=== PATIENT | female | born 1980 | race Caucasian/White ===

== ENCOUNTER 2018-01-31 19:42 | Emergency (ER) | payer SELFPAY ==
[~2018-01-31] VITALS: Ht 154.9 cm; Wt 199.6 kg
[~2018-01-31 19:42] MED LIST: [UNRECOGNIZED DRUG - CODE] PO; [UNRECOGNIZED DRUG - CODE] PO
[2018-01-31 19:43] VITALS: BP 134/98
[2018-01-31] MEDS: ACETAMINOPHEN EXTRA STRENGTH 500 MG TAB PO ONE (20:28)
[2018-01-31] MEDS: KETOROLAC 60 MG/2 ML VIAL IM ONE (20:29)
[2018-01-31 21:18] VITALS: BP 130/88
== END 2018-01-31 21:21 | disposition home or self-care (01) ==
LOC: MED 19:42
DX: S39.012A Strain of muscle, fascia and tendon of lower back, initial encounter (principal); Z79.899 Other long term (current) drug therapy; W22.8XXA Striking against or struck by other objects, initial encounter; Y93.89 Activity, other specified; Y92.89 Other specified places as the place of occurrence of the external cause; Y99.8 Other external cause status
CPT/HCPCS: 72100; 81002; 81025; 96372; 99284; J1885

== ENCOUNTER 2021-06-30 05:59 | Emergency (ER) | payer SELFPAY ==
[~2021-06-30] VITALS: Ht 154.9 cm; Wt 217.7 kg
[~2021-06-30 05:59] MED LIST changes: +D ME PO; -[UNRECOGNIZED DRUG - CODE] PO
[2021-06-30 06:04] VITALS: BP 111/83
--- NOTE | 2021-06-30 06:16 | NUR ---
TO LOBBY FOLLOWING TRIAGE
[2021-06-30] MEDS ORDERED: TETRACAINE HCL/PF 0.5% OPTH 4 ML BTL OP ONE (07:10)
[2021-06-30] MEDS ORDERED: FLUORESCEIN OPTH STRIP 1 MG OP ONE (07:10)
[2021-06-30] MEDS ORDERED: TOMOMETER 1 DEV DEV MC ONE (07:15)
--- NOTE | 2021-06-30 07:23 | NUR ---
DR MAR EVALUATING PT IN TRIAGE
[2021-06-30] MEDS ORDERED: ERYT5OIN51 OP (07:41)
--- NOTE | 2021-06-30 07:50 | NUR ---
Patient discharged with v/s stable. Written and verbal after care instructions ABOUT BLURRED VISION AND CORNEAL ABRASION given and explained. Patient alert, oriented and verbalized understanding of instructions. Ambulatory with steady gait. All questions addressed prior to discharge. ID band removed. Patient advised to follow up with PMD. Rx of ERYTHROMYCIN given. Patient educated on indication of medication including possible reaction and side effects. Opportunity to ask questions provided and answered.
== END 2021-06-30 07:50 | disposition home or self-care (01) ==
LOC: MED 05:59
DX: S05.02XA Injury of conjunctiva and corneal abrasion without foreign body, left eye, initial encounter (principal); X58.XXXA Exposure to other specified factors, initial encounter; Y93.89 Activity, other specified; Y92.89 Other specified places as the place of occurrence of the external cause; Y99.8 Other external cause status
CPT/HCPCS: 99283

== ENCOUNTER 2021-07-05 12:21 | Emergency (ER) | payer MEDICAID ==
[~2021-07-05] VITALS: Ht 154.9 cm; Wt 217.7 kg
[~2021-07-05 12:21] MED LIST changes: +ERYT5OIN51 OP
[2021-07-05 12:40] VITALS: BP 137/73
[2021-07-05] MEDS ORDERED: CEPH-588 PO (12:49)
[2021-07-05] MEDS ORDERED: NAPR-54 PO (12:49)
[2021-07-05 13:32] VITALS: BP 137/73
--- NOTE | 2021-07-05 13:32 | NUR ---
Patient discharged with v/s stable. Written and verbal after care instructions given and explained. Patient alert, oriented and verbalized understanding of instructions. Ambulatory with steady gait. All questions addressed prior to discharge. ID band removed. Patient advised to follow up with PMD. Rx of KEFLEX AND NAPROXEN given. Patient educated on indication of medication including possible reaction and side effects. Opportunity to ask questions provided and answered.
== END 2021-07-05 13:32 | disposition home or self-care (01) ==
LOC: MED 12:21
DX: L53.9 Erythematous condition, unspecified (principal); Z79.899 Other long term (current) drug therapy
CPT/HCPCS: 99283

== ENCOUNTER 2022-05-16 18:31 | Emergency (ER) | payer SELFPAY ==
[~2022-05-16] VITALS: Ht 154.9 cm; Wt 206.4 kg
[~2022-05-16 18:31] MED LIST changes: +CEPH-588 PO; +NAPR-54 PO
[2022-05-16 19:10] VITALS: BP 150/90
--- NOTE | 2022-05-16 19:13 | NUR ---
TO LOBBY A/W BED AMBULATORY
[2022-05-16] MEDS ORDERED: ONDANSETRON 4 MG ODT PO ONE (20:00)
[2022-05-16] MEDS ORDERED: KETOROLAC 30 MG/ML VIAL IM ONE (20:00)
[2022-05-16] MEDS ORDERED: PROM118S5 PO (20:53)
[2022-05-16] MEDS ORDERED: ONDA-188 PO (20:53)
[2022-05-16] MEDS ORDERED: IBUP-2213 PO (20:53)
[2022-05-16] MEDS ORDERED: KETOROLAC 30 MG/ML VIAL ONE (22:08)
[2022-05-16] MEDS ORDERED: ONDANSETRON 4 MG ODT ONE (22:09)
[2022-05-16 22:22] VITALS: BP 150/90
--- NOTE | 2022-05-16 22:22 | NUR ---
Patient discharged with v/s stable. Written and verbal after care instructions given and explained. Patient alert, oriented and verbalized understanding of instructions. Ambulatory with steady gait. All questions addressed prior to discharge. ID band removed. Patient advised to follow up with PMD. Rx of IBUPROFEN, ZOFRAN AND PROMETHAZINE given. Patient educated on indication of medication including possible reaction and side effects. Opportunity to ask questions provided and answered.
== END 2022-05-16 22:22 | disposition home or self-care (01) ==
LOC: MED 18:31
DX: B34.9 Viral infection, unspecified (principal); Z20.822 Contact with and (suspected) exposure to COVID-19; E78.00 Pure hypercholesterolemia, unspecified
CPT/HCPCS: 87426; 87804; 96372; 99283; J1885; Q0162

== ENCOUNTER 2023-02-04 05:57 | Emergency (ER) | payer MEDICAID ==
[~2023-02-04] VITALS: Ht 154.9 cm; Wt 226.8 kg
[~2023-02-04 05:57] MED LIST changes: +IBUP-2213 PO; +ONDA-188 PO; +PROM118S5 PO
[2023-02-04 05:58] VITALS: BP 161/99; PULSE 96; RESP 18; TEMP 97.9; O2SAT 95
[2023-02-04] MEDS ORDERED: CEPH-588 PO (06:34)
== END 2023-02-04 07:04 | disposition home or self-care (01) ==
LOC: MED 05:57
DX: L03.312 Cellulitis of back [any part except buttock and flank] (principal); Z79.899 Other long term (current) drug therapy
CPT/HCPCS: 99283